=== PATIENT | male | born 1960 | race Caucasian/White ===

== ENCOUNTER 2018-12-20 16:56 | Emergency (ER) | payer OTHER, SELFPAY ==
[~2018-12-20] VITALS: Ht 172.7 cm; Wt 74.0 kg
[2018-12-20 17:00] VITALS: BP 136/87
[2018-12-20] MEDS ORDERED: PROPARACAINE OPHTH 0.5%, 15ML ONE (17:29)
[2018-12-20] MEDS ORDERED: FLUORESCEIN OPHTHALMIC 1 MG STRIP EACHEYE ONE (17:30)
[2018-12-20] MEDS ORDERED: PROPARACAINE OPHTH 0.5%, 15ML EACHEYE ONE (17:30)
[2018-12-20] MEDS ORDERED: IBUPROFEN 800 MG TABLET ONE (18:23)
[2018-12-20] MEDS ORDERED: OFLOXACIN OPHTH 0.3%, 5ML LEFTEYE ONE (18:30)
[2018-12-20] MEDS ORDERED: IBUPROFEN 800 MG TABLET PO ONE (18:30)
== END 2018-12-20 19:11 | disposition home or self-care (01) ==
LOC: ED 19:05
DX: T15.02XA Foreign body in cornea, left eye, initial encounter (principal); X58.XXXA Exposure to other specified factors, initial encounter; Y93.89 Activity, other specified; Y92.89 Other specified places as the place of occurrence of the external cause; Y99.8 Other external cause status
CPT/HCPCS: 65222; 99284